=== PATIENT | female | born 1965 | race Caucasian/White ===

== ENCOUNTER 2016-10-13 07:55 | Emergency (ER) | payer BC ==
--- NOTE | 2016-10-13 08:09 | ED ---
Throat Pain/Nasal Congestion - HPI Summary HPI Summary: She started with URI symptoms about 5 days ago. now it has "settled into my chest." She has a cough that has some production of yellow phlegm . no fever, myalgias, sinus pain. non smoker. - History of Current Complaint Time Seen by Provider: 10/13/16 08:05 Hx Obtained From: Patient Onset/Duration: Gradual Onset Severity: Moderate Associated Signs And Symptoms: Positive: Nasal Discharge. Negative: Drooling, Wheezing, Hoarseness Cough: Sputum Appears - yellow. - Epiglottits Risk Factors Epiglottis Risk Factors: Negative - Allergies/Home Medications Allergies/Adverse Reactions: Allergies Allergy/AdvReac Type Severity Reaction Status Date / Time No Known Allergies Allergy Verified 10/13/16 08:04 Home Medications: Home Medications Cholecalciferol [Vitamin D] 2,000 unit PO DAILY 10/13/16 [History Confirmed 10/27] [id number] [Nyquil Severe Cold/Flu 5-6.25-10-325 mg/15Ml] 1 liq PO BEDTIME PRN 10/13/16 [History Confirmed 10/13/16] PMH/Surg Hx/FS Hx/Imm Hx - Family History Known Family History: Positive: None - no family history of related sinus or ent disease. - Social History Hx Substance Use: No Hx Tobacco Use: No Review of Systems Negative: Fever, Chills, Fatigue Eyes: Negative Negative: Photophobia, Blurred Vision ENT: Negative Negative: Epistaxis, Dental Pain Cardiovascular: Negative Positive: Cough. Negative: Shortness Of Breath Gastrointestinal: Negative Genitourinary: Negative Positive: no symptoms reported Musculoskeletal: Negative Skin: Negative Neurological: Negative All Other Systems Reviewed And Are Negative: Yes Physical Exam Triage Information Reviewed: Yes Vital Signs Reviewed: Yes Appearance: Positive: Well-Appearing, No Pain Distress, Well-Nourished. Negative: Pain Distress Skin: Positive: Warm, Skin Color Reflects Adequate Perfusion, Dry Head/Face: Positive: Normal Head/Face Inspection Eyes: Positive: Normal ENT: Positive: Normal ENT inspection, Hearing grossly normal, Pharynx normal, Pharyngeal erythema, Nasal congestion, TMs normal. Negative: Nasal drainage, TM bulging, TM dull, TM red, Tonsillar swelling, Tonsillar exudate, Trismus, Muffled/hoarse voice Dental: Negative: Percussion Tenderness @, Gross Decay/Caries @, Dental Fracture @, Abscess @ Neck: Positive: Supple, Nontender, No Lymphadenopathy. Negative: Nuchal Rigidity, Tenderness @, Enlarged Nodes @ Respiratory/Lung Sounds: Positive: Clear to Auscultation - she is breathing and talking comfortably., Breath Sounds Present. Negative: Decreased Breath Sounds , Rales, Rhonchi, Subcutaneous Emphysema Cardiovascular: Positive: Normal, RRR, Pulses are Symmetrical in both Upper and Lower Extremities Abdomen Description: Positive: Nontender, No Organomegaly Musculoskeletal: Positive: Normal, Strength/ROM Intact Neurological: Positive: Normal, Sensory/Motor Intact, Alert, Oriented to Person Place, Time Psychiatric: Positive: Normal EENT Course/Dx - Course Course Of Treatment: URI and early bronchitis without any signs or symptoms of bacterial disease. - Diagnoses Provider Diagnoses: Acute bronchitis, viral Discharge - Discharge Plan Condition: Good Disposition: HOME Patient Education Materials: Acute Bronchitis (ED) Referrals: Yobany Hernandez NP [Primary Care Provider] -
[2016-10-13 09:02] VITALS: BP 146/98
== END 2016-10-13 08:35 | disposition home or self-care (01) ==
LOC: UCCORT 07:55
DX: J20.8 Acute bronchitis due to other specified organisms (principal); R03.0 Elevated blood-pressure reading, without diagnosis of hypertension
CPT/HCPCS: 99212; G0463